=== PATIENT | female | born 1965 | race Caucasian/White ===

== ENCOUNTER 2022-04-12 02:29 | Inpatient (IN) | payer MEDICAID ==
[2022-04-12] VITALS (7 sets, daily range): BP systolic 100–129; BP diastolic 49–78
[~2022-04-12] VITALS: Ht 154.9 cm; Wt 73.6 kg
[2022-04-12] MEDS ORDERED: HYDROmorphone inj. 0.5 MG/0.5 ML DISP.SYRIN IV ONE (03:25)
[2022-04-12] MEDS ORDERED: tamsulosin 0.4mg capsule PO ONE (03:25)
[2022-04-12] MEDS ORDERED: mag hydrox/Alum hydrox/simeth 30ml oral suspension PO PRN (03:40)
[2022-04-12] MEDS ORDERED: HYDROmorphone inj. 0.5 MG/0.5 ML DISP.SYRIN IV PRN (03:40)
[2022-04-12] MEDS ORDERED: acetaminophen 325mg tablet PO PRN ×2 (03:40)
[2022-04-12] MEDS ORDERED: metoclopramide 5 mg/ml inj IV PRN (03:40)
[2022-04-12] MEDS ORDERED: HYDROmorphone/PF 0.2 MG/ML SYRINGE IV PRN (03:40)
[2022-04-12] MEDS ORDERED: ondansetron/PF 4mg/2ml inj IV PRN (03:40)
[2022-04-12] MEDS ORDERED: magnesium hydroxide 30ml (MOM) UD suspension PO PRN (03:40)
[2022-04-12] MEDS ORDERED: HYDROcodone/acetaminophen 5mg/325mg tablet PO PRN (03:40)
[2022-04-12] MEDS: tamsulosin 0.4mg capsule PO SCH ×2 (03:45→20:41)
[2022-04-12] MEDS: normal saline 1000ml 1,000 ML IV SCH ×3 (03:50→23:40)
--- NOTE | 2022-04-12 04:34 | NUR ---
PT MOVED TO HOSPITAL BED FOR COMFORT
--- NOTE | 2022-04-12 05:05 | NUR ---
Pt brought to room 301 via w/c up to bathroom, oriented to room and routine. Addendum: 04/12/22 at 0511 by Asia Blackwood RN Amended: Links added.
[2022-04-12 06:39] LABS: BASOPHILS % (AUTO) 0.5 % (0-1); EOSINOPHILS # (AUTO) 0.2 X10'3 (0-0.9); EOSINOPHILS % (AUTO) 2.2 % (0-6); HEMATOCRIT 33.6 % (35.0-45.0); HEMOGLOBIN 11.2 g/dl (12.0-16.0); LYMPHOCYTES # (AUTO) 1.4 X10'3 (1.1-4.8); LYMPHOCYTES % (AUTO) 16.3 % (21-51); MEAN CORPUSCULAR HEMOGLOBIN 31.3 PG (27.0-31.0); MEAN CORPUSCULAR HGB CONC 33.4 g/dL (33.0-36.5); MEAN CORPUSCULAR VOLUME 93.8 FL (78-98); MEAN PLATELET VOLUME 6.7 FL (7.4-10.4); MONOCYTES # (AUTO) 0.5 X10'3 (0-0.9); MONOCYTES % (AUTO) 6.1 % (2-12); NEUTROPHILS # (AUTO) 6.3 X10'3 (1.8-7.7); NEUTROPHILS % (AUTO) 74.9 % (42-75); PLATELET COUNT 256 X10'3 (140-440); RED BLOOD COUNT 3.58 X10'6 (4.20-5.60); RED CELL DISTRIBUTION WIDTH 13.8 % (11.5-14.5); WHITE BLOOD COUNT 8.4 X10'3 (4.5-11.0)
[2022-04-12 06:48] LABS: ALBUMIN 3.2 G/DL (3.4-5.0); ANION GAP 8 (8-16); BLOOD UREA NITROGEN 10 MG/DL (7-18); BUN/CREATININE RATIO 6.6 (6.6-38.0); CALCIUM 8.1 MG/DL (8.5-10.1); CHLORIDE 113 MMOL/L (99-107); CREATININE 1.51 MG/DL (0.40-0.90); GLUCOSE 98 MG/DL (70-104); POTASSIUM 3.2 MMOL/L (3.5-5.1); SODIUM 144 MMOL/L (135-145); TOTAL CARBON DIOXIDE 23.3 MMOL/L (24-32); eGFR 35 ML/MIN
[2022-04-12] MEDS: docusate sod 100mg capsule PO SCH ×2 (08:00→20:00)
[2022-04-12] MEDS ORDERED: FLUT12AE21 (08:14)
[2022-04-12] MEDS ORDERED: FAMO40TA7 PO (08:14)
[2022-04-12] MEDS ORDERED: FERR325T29 PO (08:14)
[2022-04-12] MEDS ORDERED: VALA500T41 PO (08:14)
[2022-04-12] MEDS ORDERED: METH-797 PO (08:14)
[2022-04-12] MEDS ORDERED: TOPI25TA49 PO (08:14)
[2022-04-12] MEDS ORDERED: ESTR1TAB28 PO (08:14)
[2022-04-12] MEDS ORDERED: ESCI-8 PO (08:14)
[2022-04-12] MEDS ORDERED: LEVO100T9 PO (08:14)
[2022-04-12] MEDS ORDERED: BECL10.6 (08:14)
[2022-04-12] MEDS ORDERED: CHOL-4 PO (08:14)
[2022-04-12] MEDS: CefTRIAXone/D5W-Rocephin 1gm 50 ML IV SCH (08:33)
--- NOTE | 2022-04-12 11:00 | NUR ---
Malnutrition consult: Pt states she has had a decreased appetite since she had Covid earlier this year around September. She mentions that her usual wt is around 178lb and now she weighs about 162lb. This would represent a moderate amount of wt loss at 9% in 7 months if accurate; no wt hx in EMR. Pt does not appear to have visible muscle/fat wasting. No edema noted. Pt states her appetite is still low, though she is currently NPO. Pt does not meet minimum criteria for malnutrition at this time. Addendum: 04/12/22 at [address] Amended: Links added.
[2022-04-12] MEDS: HYDROcodone/acetaminophen 10/325mg tab PO PRN ×2 (14:26→20:51)
--- NOTE | 2022-04-12 15:20 | NUR ---
Student documentation: I have reviewed and agree with all interventions, assessments performed and documented by Shereen Bagley RN.
--- NOTE | 2022-04-12 18:15 | NUR ---
Received report from Amanda ZAVALA.
--- NOTE | 2022-04-12 18:27 | NUR ---
Report to Andreea ZAVALA
--- NOTE | 2022-04-12 19:16 | NUR ---
MD Jarquin paged regarding 3.2 Potassium on labs this morning. Asked for call back if need orders for replacement.
[2022-04-12] MEDS ORDERED: ASPI-1071 PO (19:50)
[2022-04-12] MEDS: budesonide 0.5mg/2ml UD nebule IH SCH (20:19)
[2022-04-12] MEDS: topiramate 25mg tablet PO SCH (20:41)
[2022-04-12] MEDS ORDERED: potassium Cl 20 mEq SR tablet PO STA (20:46)
[2022-04-12] MEDS ORDERED: tamsulosin 0.4mg capsule PO SCH (21:00)
[2022-04-13] VITALS (18 sets, daily range): BP systolic 82–191; BP diastolic 50–87
[2022-04-13] MEDS: HYDROcodone/acetaminophen 10/325mg tab PO PRN ×3 (02:34→18:39)
[2022-04-13] MEDS: normal saline 1000ml 1,000 ML IV SCH ×2 (04:19→19:40)
[2022-04-13 06:27] LABS: BASOPHILS % (AUTO) 0.4 % (0-1); EOSINOPHILS # (AUTO) 0.2 X10'3 (0-0.9); EOSINOPHILS % (AUTO) 3.8 % (0-6); HEMATOCRIT 29.4 % (35.0-45.0); HEMOGLOBIN 9.9 g/dl (12.0-16.0); LYMPHOCYTES # (AUTO) 1.4 X10'3 (1.1-4.8); LYMPHOCYTES % (AUTO) 24.9 % (21-51); MEAN CORPUSCULAR HEMOGLOBIN 31.7 PG (27.0-31.0); MEAN CORPUSCULAR HGB CONC 33.9 g/dL (33.0-36.5); MEAN CORPUSCULAR VOLUME 93.6 FL (78-98); MEAN PLATELET VOLUME 6.6 FL (7.4-10.4); MONOCYTES # (AUTO) 0.4 X10'3 (0-0.9); MONOCYTES % (AUTO) 7.9 % (2-12); NEUTROPHILS # (AUTO) 3.5 X10'3 (1.8-7.7); PLATELET COUNT 201 X10'3 (140-440); RED BLOOD COUNT 3.14 X10'6 (4.20-5.60); RED CELL DISTRIBUTION WIDTH 13.7 % (11.5-14.5); WHITE BLOOD COUNT 5.6 X10'3 (4.5-11.0)
[2022-04-13 06:38] LABS: ALBUMIN 2.7 G/DL (3.4-5.0); ANION GAP 6 (8-16); BLOOD UREA NITROGEN 9 MG/DL (7-18); BUN/CREATININE RATIO 6.8 (6.6-38.0); CALCIUM 8.2 MG/DL (8.5-10.1); CREATININE 1.32 MG/DL (0.40-0.90); GLUCOSE 77 MG/DL (70-104); POTASSIUM 3.7 MMOL/L (3.5-5.1); SODIUM 144 MMOL/L (135-145); TOTAL CARBON DIOXIDE 24.2 MMOL/L (24-32); eGFR 41 ML/MIN
[2022-04-13 06:41] LABS: CHLORIDE 114 MMOL/L (99-107)
--- NOTE | 2022-04-13 07:02 | NUR ---
Patient in room [facility]TH[facility] 4011. I have received report from Anderea ZAVALA and had the opportunity to ask questions and assume patient care.
[2022-04-13] MEDS ORDERED: famotidine 20mg tablet PO SCH (08:00)
[2022-04-13] MEDS: budesonide 0.5mg/2ml UD nebule IH SCH (08:07)
[2022-04-13] MEDS: levoTHYROXINE 100mcg tablet PO SCH (08:47)
[2022-04-13] MEDS: ferrous sulfate 325mg tablet PO SCH (08:47)
[2022-04-13] MEDS: docusate sod 100mg capsule PO SCH ×2 (08:47→20:00)
[2022-04-13] MEDS: ESCITALOPRAM OXALATE 5 MG TABLET PO SCH (08:48)
[2022-04-13] MEDS: topiramate 25mg tablet PO SCH ×2 (08:50→20:23)
[2022-04-13] MEDS: CefTRIAXone/D5W-Rocephin 1gm 50 ML IV SCH (08:50)
[2022-04-13] MEDS ORDERED: iohexol 350MG/ML 100ml bottle IV ONE (11:53)
[2022-04-13] MEDS ORDERED: LIDOcaine 1% (10mg/ml)w/preservative inj. 20ml MDV ONE (12:27)
[2022-04-13] MEDS ORDERED: sevoflurane 250ml liquid IH ONE (12:27)
[2022-04-13] MEDS ORDERED: fentaNYL/PF 50MCG/1 ML 2ML syringe ONE (12:31)
[2022-04-13] MEDS ORDERED: propofol inj 20 ML IV ONE (12:31)
[2022-04-13] MEDS ORDERED: midazolam 1 mg/ML 2ml injection ONE (12:31)
[2022-04-13] MEDS ORDERED: dexamethasone sod phosphate 4mg/ml inj. ONE (13:04)
[2022-04-13] MEDS ORDERED: ondansetron/PF 4mg/2ml inj ONE (13:04)
--- NOTE | 2022-04-13 13:23 | NUR ---
Received from OR via SURGICAL BED , accompanied by Anesthesiologist SUDHA and report given by Anesthesiolgist. PT WITH 20G PIV IN RIGHT AC. VSS. PATIENT WITH NO DRAINAGE PRESENT. 10L MASK ON WITH 100% SATURATIONS. Addendum: 04/13/22 at 1353 by Russell Ng RN, RN Amended: Links added.
[2022-04-13] MEDS ORDERED: ondansetron/PF 4mg/2ml inj IV PRN (13:30)
[2022-04-13] MEDS ORDERED: HYDROmorphone/PF 0.2 MG/ML SYRINGE IV PRN ×2 (13:30)
[2022-04-13] MEDS ORDERED: ringers solution, lacted 1,000 ML IV SCH (13:30)
[2022-04-13] MEDS ORDERED: meperidine/PF 25mg/ml syringe IV PRN ×3 (13:30)
--- NOTE | 2022-04-13 14:50 | NUR ---
Pt arrived back to room 4011B, VSS no c/o pain/discomfort.
--- NOTE | 2022-04-13 19:01 | NUR ---
Problems reprioritized. Patient report given, questions answered & plan of care reviewed with Andreea Martino.
[2022-04-13] MEDS: tamsulosin 0.4mg capsule PO SCH (20:23)
--- NOTE | 2022-04-13 22:54 | NUR ---
Charting by Shelton BOLAÑOS reviewed by Becky Orr RN
[2022-04-14] MEDS: normal saline 1000ml 1,000 ML IV SCH (01:19)
[2022-04-14 02:00] VITALS: BP 125/74
[2022-04-14 06:38] LABS: BASOPHILS % (AUTO) 0.3 % (0-1); EOSINOPHILS % (AUTO) 0 % (0-6); HEMATOCRIT 30.3 % (35.0-45.0); HEMOGLOBIN 10.4 g/dl (12.0-16.0); LYMPHOCYTES % (AUTO) 25.5 % (21-51); MEAN CORPUSCULAR HEMOGLOBIN 31.5 PG (27.0-31.0); MEAN CORPUSCULAR HGB CONC 34.2 g/dL (33.0-36.5); MEAN CORPUSCULAR VOLUME 92.2 FL (78-98); MEAN PLATELET VOLUME 6.5 FL (7.4-10.4); MONOCYTES # (AUTO) 0.2 X10'3 (0-0.9); MONOCYTES % (AUTO) 4.1 % (2-12); NEUTROPHILS # (AUTO) 2.8 X10'3 (1.8-7.7); NEUTROPHILS % (AUTO) 70.1 % (42-75); PLATELET COUNT 238 X10'3 (140-440); RED BLOOD COUNT 3.29 X10'6 (4.20-5.60); RED CELL DISTRIBUTION WIDTH 13.6 % (11.5-14.5)
--- NOTE | 2022-04-14 06:46 | NUR ---
Patient in room ORTH[facility] 4011. I have received report from Andreea ZAVALA and had the opportunity to ask questions and assume patient care.
--- NOTE | 2022-04-14 06:47 | NUR ---
Patient in room ORTH[facility] 4011. I have received report from Andreea ZAVALA and had the opportunity to ask questions and assume patient care.
[2022-04-14 06:54] LABS: ALBUMIN 2.7 G/DL (3.4-5.0); ANION GAP 8 (8-16); BLOOD UREA NITROGEN 9 MG/DL (7-18); BUN/CREATININE RATIO 7.8 (6.6-38.0); CALCIUM 8.6 MG/DL (8.5-10.1); CHLORIDE 114 MMOL/L (99-107); CREATININE 1.15 MG/DL (0.40-0.90); GLUCOSE 119 MG/DL (70-104); SODIUM 144 MMOL/L (135-145); TOTAL CARBON DIOXIDE 21.7 MMOL/L (24-32); eGFR 48 ML/MIN
[2022-04-14 07:00] VITALS: BP 118/71
[2022-04-14] MEDS: ESCITALOPRAM OXALATE 5 MG TABLET PO SCH (07:43)
[2022-04-14] MEDS: ferrous sulfate 325mg tablet PO SCH (07:43)
[2022-04-14] MEDS: docusate sod 100mg capsule PO SCH (07:43)
[2022-04-14] MEDS: topiramate 25mg tablet PO SCH (07:43)
[2022-04-14] MEDS: levoTHYROXINE 100mcg tablet PO SCH (07:43)
[2022-04-14] MEDS: CefTRIAXone/D5W-Rocephin 1gm 50 ML IV SCH (08:50)
[2022-04-14 10:00] VITALS: BP 105/65
--- NOTE | 2022-04-14 11:37 | NUR ---
reviewed Milena FUNEZ's charting, agreed with Physical assessment findings.
[2022-04-14] MEDS ORDERED: tamsulosin capsule PO (12:14)
[2022-04-14] MEDS ORDERED: HYDR-3965 PO (12:18)
[2022-04-14] MEDS ORDERED: ACET-1008 PO (12:18)
--- NOTE | 2022-04-14 13:33 | NUR ---
Pt discharged to daughters home with son in law picking her up in a private vehicles at 1330. Pt discharged VSS and appropriate. All belongings and valuables accounted for with pt. Pt accepting and understanding of all discharge information and educations. Pt instructed to F/U with dr estrella and to call his office to facilitate her appt, agreed and verbalized understanding.
[2022-04-15] MEDS ORDERED: famotidine 20mg tablet PO SCH (08:00)
== END 2022-04-14 13:25 | disposition home or self-care (01) | DRG 446 ==
LOC: ER 02:31 → ED HOLD 03:42 → ORTHO 4S 05:05
PROVIDERS: ADMIT Internal Medicine; ATTEND Internal Medicine
PROC: 0T778DZ Dilation of Left Ureter with Intraluminal Device, Via Natural or Artificial Opening Endoscopic (ICD-10-PCS; 2022-04-13)
PROC: 0TC78ZZ Extirpation of Matter from Left Ureter, Via Natural or Artificial Opening Endoscopic (ICD-10-PCS; principal; 2022-04-13 12:27)
DX: N13.6 Pyonephrosis (principal); D64.9 Anemia, unspecified; E03.9 Hypothyroidism, unspecified; G89.29 Other chronic pain; M54.50 Low back pain, unspecified; M79.10 Myalgia, unspecified site; E87.6 Hypokalemia; K21.9 Gastro-esophageal reflux disease without esophagitis; E66.9 Obesity, unspecified; N18.9 Chronic kidney disease, unspecified; N20.2 Calculus of kidney with calculus of ureter; Z90.710 Acquired absence of both cervix and uterus; Z88.5 Allergy status to narcotic agent; Z90.49 Acquired absence of other specified parts of digestive tract; Z68.30 Body mass index [BMI] 30.0-30.9, adult
CPT/HCPCS: 36415; 71045; 76000; 80048; 82948; 85025; 85730; 87081; 93005; 94760; 96374; 99285; A4618; C1769; C2617; G0378; J0696; J1100; J1170; J2250; J2405; J2704; J3010; J3490; J7030; J7120; Q9967